=== PATIENT | female | born 1995 | race African-American/Black ===

== ENCOUNTER 2020-02-10 20:38 | Emergency (ER) | payer MEDICAID, OTHER ==
[~2020-02-10] VITALS: Ht 160 cm; Wt 47.6 kg
[2020-02-10] MEDS ORDERED: IBUPROFEN 600MG TABLET PO ONE (21:30)
[2020-02-10] MEDS ORDERED: FLUORESCEIN SODIUM 1MG/STRIP LEFTEYE ONE (21:30)
[2020-02-10] MEDS ORDERED: TETRACAINE 0.5% OPHTH DROPS 4ML LEFTEYE ONE (22:15)
[2020-02-10 22:36] VITALS: BP 128/74
== END 2020-02-10 22:37 | disposition home or self-care (01) ==
LOC: ER 20:38
DX: S05.02XA Injury of conjunctiva and corneal abrasion without foreign body, left eye, initial encounter (principal); H10.9 Unspecified conjunctivitis; X58.XXXA Exposure to other specified factors, initial encounter; Y93.89 Activity, other specified; Y92.89 Other specified places as the place of occurrence of the external cause; Y99.8 Other external cause status
CPT/HCPCS: 99283

== ENCOUNTER 2020-08-16 13:56 | Emergency (ER) | payer MEDICAID ==
[~2020-08-16] VITALS: Ht 160 cm; Wt 50.0 kg
[2020-08-16] MEDS ORDERED: ACETAMINOPHEN 325MG TABLET PO ONE (14:45)
[2020-08-16 15:54] VITALS: BP 104/62
== END 2020-08-16 15:54 | disposition home or self-care (01) ==
LOC: ER 13:56
DX: S00.83XA Contusion of other part of head, initial encounter (principal); M25.562 Pain in left knee; V49.49XA Driver injured in collision with other motor vehicles in traffic accident, initial encounter; Y93.89 Activity, other specified; Y92.89 Other specified places as the place of occurrence of the external cause; Y99.8 Other external cause status
CPT/HCPCS: 73562; 81025; 93005; 99285

== ENCOUNTER 2022-12-10 17:36 | Emergency (ER) | payer MEDICAID ==
[~2022-12-10] VITALS: Ht 160 cm; Wt 49.0 kg
[2022-12-10] MEDS ORDERED: TOPUD PO (21:07)
[2022-12-10] MEDS ORDERED: NAP5EC PO (21:07)
[2022-12-10] MEDS ORDERED: ACETAMINOPHEN 325MG TABLET PO ONE (21:15)
[2022-12-10 21:25] VITALS: BP 125/72
== END 2022-12-10 21:35 | disposition home or self-care (01) ==
LOC: ER 17:36
DX: R51.9 Headache, unspecified (principal); G89.11 Acute pain due to trauma; V49.49XA Driver injured in collision with other motor vehicles in traffic accident, initial encounter; Y93.89 Activity, other specified; Y92.411 Interstate highway as the place of occurrence of the external cause
CPT/HCPCS: 81025; 93005; 99283